=== PATIENT | male | born 1950 | race Hispanic/Latino ===

== ENCOUNTER 2019-12-12 06:18 | Day surgery (SDC) | payer MEDICARE, OTHER ==
[2019-12-12] MEDS ORDERED: ASPIRIN EC 325 MG TAB PO ONE ×2 (06:39→06:45)
[2019-12-12] MEDS ORDERED: SODIUM CHLORIDE 0.9% 500 ML 500 ML ONE (06:45)
[2019-12-12] MEDS: SODIUM CHLORIDE 0.9% 500 ML 500 ML IV SCH ×2 (07:00→08:59)
[2019-12-12 07:16] LABS: Basophils # (Auto) 0.1 K/mm3 (0.0-0.1); Basophils % (Auto) 1.1 % (0.0-1.8); Eosinophils # (Auto) 0.5 K/mm3 (0.0-0.4); Eosinophils % (Auto) 4.2 % (0.0-4.3); Hematocrit 50.3 % (35.5-45.6); Hemoglobin 17.1 gm/dl (11.8-15.2); Lymphocytes # (Auto) 1.4 K/mm3 (1.2-5.4); Lymphocytes % (Auto) 12.8 % (13.4-35.0); Mean Corpuscular HGB Conc 34 % (32-34); Mean Corpuscular Volume 85 fl (84-94); Monocytes # (Auto) 0.7 K/mm3 (0.0-0.8); Monocytes % (Auto) 6.6 % (0.0-7.3); Platelet Count 328 K/mm3 (140-440); Red Blood Count 5.96 M/mm3 (3.65-5.03); Red Cell Distribution Width 14.5 % (13.2-15.2)
[2019-12-12 07:26] LABS: INR 1.14 (0.87-1.13)
[2019-12-12 07:37] LABS: Partial Thromboplastin Time 34.5 Sec. (24.2-36.6)
[2019-12-12 07:38] LABS: BUN/Creatinine Ratio 21; Blood Urea Nitrogen 15 mg/dL (9-20); Calcium 9.2 mg/dL (8.4-10.2); Hemolysis Index 15
[2019-12-12] MEDS ORDERED: HEPARIN/NS 5000 UNIT/500ML 1,000 ML IR ONE (08:33)
[2019-12-12] MEDS ORDERED: NITROGLYCERIN SYRINGE 0 ML ONE (08:34)
[2019-12-12] MEDS ORDERED: HEPARIN 10,000 UNITS/10 ML VIAL ONE (08:34)
[2019-12-12] MEDS: fentaNYL 100 MCG/2 ML INJ ONE ×2 (08:59→09:05)
[2019-12-12] MEDS: MIDAZOLAM 2 MG/2 ML INJ ONE ×2 (08:59→09:05)
[2019-12-12] MEDS: LIDOCAINE (2%) 20 MG/1 ML VIAL 20 ML MDV INFILTRATI ONE ×2 (08:59→09:08)
--- NOTE | 2019-12-12 10:07 | Cardiac Catherization Report ---
PROCEDURE: Left heart catheterization with bypass grafts and LV gram. CLINICAL INFORMATION: This is a 69-year-old gentleman in 2006 had a 5-vessel bypass, ZUÑIGA to LAD, SVG to OM, SVG to diagonal, sequential graft to PDA, PLV had abnormal stress test shows anterolateral ischemia with chest pain despite being on beta sonny, nitrates, here for left heart catheterization. Procedure was done with moderate sedation started 9:05 a.m., finished at 9:37 a.m., which is 32 minutes of moderate sedation. Procedure was done via the right femoral artery, sterile technique, local anesthesia, 5-[place] groin sheath inserted. PROCEDURE FINDINGS: Left system engaged with a JL5. The aorta is dilated. Left main is a large long vessel, proximal mid patent, distal diffuse 30-40%, bifurcates into a small LAD. The proximal 100%. Ramus is a small caliber vessel that is patent, but diffusely diseased less than 2 mm. Circumflex in the AV groove is a small medium caliber vessel, patent, but distally becomes diffusely diseased multiple small vessel branches. RCA engaged with JR4, is a large dominant vessel, proximal patent, mid is 100%. SVG to PDA and PLV was engaged with an AR mod catheter, is a large caliber graft, free of disease at the ostium, body, and anastomosis feeds into the PDA fills retrograde fill into the PLV that are patent. ZUÑIGA was engaged with IM catheter, large caliber graft, free of disease ostium, body, and anastomosis site, feeds into mid LAD with good retrograde and antegrade flow into small vessel LAD, but patent. SVG to OM was engaged with JR4 catheter, proximal ostial has a 40-50% lesion. No catheter dampening. Rest of vessels large caliber vessel, patent, goes into small OM1 that is patent. SVG to diagonal was unable to engage the aortogram was done revealed occluded SVG graft to diagonal. LV gram done in [place] and TREVINO view shows normal LV function, LVEDP at 19 mmHg, LV is 160. Aortic is 160/88. No gradient across the aortic valve on pullback. 5-[place] catheters all taken over a guidewire, 5-[place] groin sheath was discontinued. Manual pressure held. No hematoma, no bleeding. SUMMARY: Left main distal 30%, LAD proximal 100%. Ramus small vessel, patent with diffuse disease. Circumflex patent. Distal vessel disease. OM1 100%, patent ZUÑIGA to LAD, SVG to OM, proximal has a 30-40% lesion. Rest of the vessel is patent. RCA mid 100% with patent SVG to PDA and PLV normal LV function. Treat medically. Increase beta sonny medical management. The patient's symptomology. Discussed this in detail with the patient and patient's family. JOB# [id number] JOCELIN/MARIELLA
--- NOTE | 2019-12-12 10:46 | Short Stay Summary ---
Short Stay Documentation Date of service: 12/12/19 - History H&P: obtained from office - Allergies and Medications Current Medications: Allergies hydralazine Allergy (Verified 12/12/19 06:48) Shortness of Breath Penicillins Allergy (Unverified 12/12/19 06:48) Anaphylaxis respiratory distress Home Medications Medication Instructions Recorded Confirmed Last Taken Type Aspirin [Adult Aspirin] 200 mg PO DAILY 12/12/19 12/12/19 12/11/19 History AtorvaSTATin [Lipitor] 40 mg PO QHS 12/12/19 12/12/19 12/11/19 History Cyanocobalamin [Vitamin B-12] 1,000 mcg PO DAILY 12/12/19 12/12/19 12/11/19 History ISOSORBIDE MONOnitrate [Imdur ER] 30 mg PO DAILY 12/12/19 12/12/19 12/11/19 History Metoprolol [Lopressor TAB] 25 mg PO BID 12/12/19 12/12/19 12/11/19 History Sertraline [Zoloft] 100 mg PO QDAY 12/12/19 12/12/19 12/11/19 History levETIRAcetam [Keppra TAB] 1,500 mg PO BID 12/12/19 12/12/19 12/11/19 History lisinopriL [Zestril TAB] 40 mg PO QDAY 12/12/19 12/12/19 12/11/19 History Active Medications Sodium Chloride (Nacl 0.9% 500 Ml) 500 mls @ 50 mls/hr IV DIRECT SOFIA Stop: 12/12/19 16:59 Last Admin: 12/12/19 08:59 Dose: 50 mls/hr Documented by: - Brief post op/procedure progress note Date of procedure: 12/12/19 Pre-op diagnosis: cp Post-op diagnosis: same Procedure: see report Anesthesia: local Estimated blood loss: none Pathology: none - Disposition Condition at discharge: Good Disposition: - TO HOME OR SELFCARE - Discharge Diagnoses (1) 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 transplanted heart: [place] heart (2) Chest pain Status: Chronic (3) Abnormal stress ECG Status: Acute (4) Hypertension Status: Chronic Qualifiers: Hypertension type: essential hypertension Qualified Code(s): I10 - Essential (primary) hypertension (5) Hyperlipemia, mixed Status: Chronic Short Stay Discharge Plan Activity: advance as tolerated, no driving until cleared by PCP Follow up with: [facility] [Primary Care Provider] - 7 Days Prescriptions: Metoprolol [Lopressor TAB] 50 mg PO BID #60
[2019-12-12 14:35] VITALS: BP 136/68
== END 2019-12-12 14:30 | disposition home or self-care (01) ==
LOC: CATHLABREC 06:18
PROVIDERS: ATTEND Internal Medicine
DX: R07.89 Other chest pain (principal); R94.39 Abnormal result of other cardiovascular function study; I10 Essential (primary) hypertension; I25.810 Atherosclerosis of coronary artery bypass graft(s) without angina pectoris; E78.2 Mixed hyperlipidemia; G47.30 Sleep apnea, unspecified; K21.9 Gastro-esophageal reflux disease without esophagitis; F32.9 Major depressive disorder, single episode, unspecified; Z79.899 Other long term (current) drug therapy; Z88.0 Allergy status to penicillin; Z87.891 Personal history of nicotine dependence; Z79.82 Long term (current) use of aspirin; Z95.1 Presence of aortocoronary bypass graft; Z90.49 Acquired absence of other specified parts of digestive tract; Z98.890 Other specified postprocedural states; Z88.8 Allergy status to other drugs, medicaments and biological substances
CPT/HCPCS: 36415; 80048; 85025; 85610; 85730; 93005; 93010; 93459; 93567; 99156; 99157; J1644; J2250; J3010; J7040; Q9967